=== PATIENT | female | born 1935 | race Caucasian/White ===

== ENCOUNTER → 2016-08-01 | Outpatient (CLI) | payer MEDICARE, OTHER | LOC: HEART 5 09:28 | DX: R00.2 Palpitations (principal) | CPT/HCPCS: 93306 ==

== ENCOUNTER → 2020-09-14 | Outpatient (CLI) | payer MEDICARE ==
[~2020-09-14] VITALS: Ht 162.6 cm; Wt 92.5 kg
[~2020-09-14] MED LIST: ACIPHEX20 MG PO; ALLEGRA-D 24 H1 EACH PO; AMLODIPINE/VALSARTAN PO; BUPROPION XL150 MG PO; CELEBREX200 MG PO; DIFLUCAN100 MG PO; ESCITALOPRAM OX10 MG PO; FLOMAX 0.4 MG0.4 MG PO; HYDROCODON-ACE1 EAC4 PO; LIVALO2 MG PO; NEURONTIN300 MG PO; SYNTHROID50 MCG PO; TORADOL IM; VITAMIN D PO; [UNRECOGNIZED DRUG - OTHER] TD
== END ==
LOC: OPSV 09-10 10:00
DX: S32.000S Wedge compression fracture of unspecified lumbar vertebra, sequela (principal); M81.0 Age-related osteoporosis without current pathological fracture; X58.XXXD Exposure to other specified factors, subsequent encounter
CPT/HCPCS: 96365; J3489

== ENCOUNTER → 2020-11-28 | Outpatient (CLI) | payer MEDICARE ==
[~2020-11-28] MED LIST changes: +AUGMENTIN 875-1 EACH PO
== END ==
LOC: KOH-I 14:39
DX: M25.562 Pain in left knee (principal); M17.12 Unilateral primary osteoarthritis, left knee
CPT/HCPCS: 73562

== ENCOUNTER → 2020-12-05 | Outpatient (CLI) | payer MEDICARE | LOC: EXRD 15:19 | DX: M25.562 Pain in left knee (principal) | CPT/HCPCS: 76882 ==

== ENCOUNTER → 2020-12-12 | Outpatient (CLI) | payer MEDICARE | LOC: KOH-I 13:24 | DX: M25.562 Pain in left knee (principal); M71.22 Synovial cyst of popliteal space [Baker], left knee; M17.12 Unilateral primary osteoarthritis, left knee; S83.242A Other tear of medial meniscus, current injury, left knee, initial encounter | CPT/HCPCS: 73721 ==

== ENCOUNTER 2020-12-24 04:13 | Emergency (ER) | payer MEDICARE ==
[~2020-12-24 04:13] MED LIST changes: -AUGMENTIN 875-1 EACH PO
[2020-12-24 05:26] LABS: HEMOGLOBIN 10.7 gm/dl (12.3-15.3); RED BLOOD COUNT 4.3 M/UL (4.00-5.10); WHITE BLOOD COUNT 12.5 K/UL (4.5-11.0)
[2020-12-24 05:47] LABS: BUN/CREATININE RATIO 16 (0-10)
[2020-12-24] MEDS ORDERED: AUGMENTIN 875-1 EACH PO (06:44)
== END 2020-12-24 10:56 | disposition home or self-care (01) ==
LOC: ER1 04:13
PROVIDERS: Physician Assistant
DX: N39.0 Urinary tract infection, site not specified (principal); Z20.822 Contact with and (suspected) exposure to COVID-19
CPT/HCPCS: 51701; 51702; 70450; 71045; 80053; 81001; 82550; 82553; 83605; 83874; 84484; 85025; 87040; 87077; 87086; 87186; 93005; 96374; 99285; J1580; J7030; U0002

== ENCOUNTER 2021-03-22 15:58 | Emergency (ER) | payer MEDICARE ==
[~2021-03-22 15:58] MED LIST changes: +AUGMENTIN 875-1 EACH PO
[2021-03-22 16:59] LABS: HEMOGLOBIN 11.4 gm/dl (12.3-15.3); RED BLOOD COUNT 4.53 M/UL (4.00-5.10); WHITE BLOOD COUNT 7.1 K/UL (4.5-11.0)
[2021-03-22 17:22] LABS: BUN/CREATININE RATIO 18 (0-10)
[2021-03-22] MEDS ORDERED: FLOMAX 0.4 MG0.4 MG PO (19:23)
[2021-03-22] MEDS ORDERED: MACROBID 100 M100 MG PO (19:23)
== END 2021-03-22 19:45 | disposition home or self-care (01) ==
LOC: ER1 15:58
PROVIDERS: Physician Assistant
DX: N13.2 Hydronephrosis with renal and ureteral calculous obstruction (principal); Z88.0 Allergy status to penicillin; Z88.5 Allergy status to narcotic agent; Z88.7 Allergy status to serum and vaccine
CPT/HCPCS: 80053; 81001; 82550; 82553; 83690; 83874; 84484; 85025; 85379; 85610; 87086; 93005; 99284; Q9967

== ENCOUNTER → 2021-04-03 | Outpatient (CLI) | payer MEDICARE ==
[~2021-04-03] MED LIST changes: +MACROBID 100 M100 MG PO
== END ==
LOC: EXRD 13:30
DX: N20.2 Calculus of kidney with calculus of ureter (principal); K59.00 Constipation, unspecified
CPT/HCPCS: 74018

== ENCOUNTER → 2021-10-11 | Outpatient (CLI) | payer MEDICARE | LOC: KOH-I 11:30 | DX: S99.929A Unspecified injury of unspecified foot, initial encounter (principal) | CPT/HCPCS: 73660 ==

== ENCOUNTER → 2021-12-10 | Outpatient (CLI) | payer MEDICARE | LOC: KOH-I 11:19 | DX: M79.672 Pain in left foot (principal); S92.352A Displaced fracture of fifth metatarsal bone, left foot, initial encounter for closed fracture | CPT/HCPCS: 73630 ==